=== PATIENT | male | born 1955 | race Two or more races ===

== ENCOUNTER 2020-03-30 18:23 | Emergency (ER) | payer SELFPAY ==
[~2020-03-30] VITALS: Ht 170.2 cm; Wt 90.7 kg
[2020-03-30] MEDS ORDERED: ONDANSETRON ODT 4 MG TAB PO ONE (20:30)
[2020-03-30] MEDS ORDERED: HYDROcodone-ACET 5/325MG TAB PO ONE (20:30)
[2020-03-30 20:35] VITALS: BP 120/63
== END 2020-03-30 20:39 | disposition home or self-care (01) ==
LOC: ER 18:23
DX: S52.532A Colles' fracture of left radius, initial encounter for closed fracture (principal); W19.XXXA Unspecified fall, initial encounter; Y93.89 Activity, other specified; Y92.89 Other specified places as the place of occurrence of the external cause; Y99.8 Other external cause status
CPT/HCPCS: 29125; 73110; 99283; Q0162